=== PATIENT | female | born 1965 | race Hispanic/Latino ===

== ENCOUNTER 2021-01-01 16:19 | Emergency (ER) | payer OTHER ==
[~2021-01-01] VITALS: Ht 154.9 cm; Wt 90.7 kg
[2021-01-01] MEDS ORDERED: ACETAMINOPHEN 500 MG TABLET ONE (17:29)
[2021-01-01] MEDS ORDERED: ACETAMINOPHEN 500 MG TABLET PO ONE (17:30)
[2021-01-01 17:34] VITALS: BP 144/79
[2021-01-01] MEDS ORDERED: CYCL10 PO (17:40)
[2021-01-01] MEDS ORDERED: METH4TAB PO (17:40)
[2021-01-01] MEDS ORDERED: IBUP-2070 PO (17:40)
== END 2021-01-01 17:49 | disposition home or self-care (01) ==
LOC: EDH 16:19
DX: M25.521 Pain in right elbow (principal); Z79.1 Long term (current) use of non-steroidal anti-inflammatories (NSAID); Z79.52 Long term (current) use of systemic steroids; W18.39XA Other fall on same level, initial encounter; Y93.89 Activity, other specified; Y92.89 Other specified places as the place of occurrence of the external cause; Y99.8 Other external cause status
CPT/HCPCS: 73080

== ENCOUNTER 2024-06-12 15:13 | Emergency (ER) | payer BC, OTHER ==
[~2024-06-12] VITALS: Ht 160 cm; Wt 90.7 kg
[~2024-06-12 15:13] MED LIST: CYCL10TA16 PO; IBUP-2070 PO; METH4TAB PO
[2024-06-12] MEDS: Solu-medROL 40MG VIAL IVP ONE (16:06)
[2024-06-12] MEDS: ketOROlac 15MG/ML VIAL (15MG/ML) IV ONE (16:06)
[2024-06-12] MEDS: LACTATED RINGERS 1000ML 1,000 ML IV ONE (16:06)
[2024-06-12 16:34] LABS: BASOPHILS # (AUTO) 0.03 K/uL (0.00-0.20); BASOPHILS % (AUTO) 0.2 % (0.0-5.0); EOSINOPHILS # (AUTO) 0.02 K/uL (0.00-0.70); EOSINOPHILS % (AUTO) 0.2 % (0.0-8.0); HEMATOCRIT 40.5 % (36-48); IMMATURE GRANULOCYTE ABSOLUTE 0.15 K/uL (0-1); LYMPHOCYTES # (AUTO) 2.3 K/uL (1.0-4.8); LYMPHOCYTES % (AUTO) 17.6 % (21.0-51.0); MEAN CORPUSCULAR HEMOGLOBIN 29.3 pg (27.0-33.0); MEAN CORPUSCULAR HGB CONC 32.1 g/dL (32.0-36.0); MEAN CORPUSCULAR VOLUME 91.2 fL (79-99); MONOCYTES # (AUTO) 1.8 K/uL (0.1-1.0); MONOCYTES % (AUTO) 13.4 % (3.0-13.0); NEUTROPHILS % (AUTO) 67.5 % (40.0-77.0); PLATELET COUNT (AUTO) 272 K/uL (130-400); RED BLOOD CELL COUNT(AUTO) 4.44 MIL/uL (4.00-5.50); RED CELL DISTRIBUTION WIDTH 12.7 % (11.0-15.5); WHITE BLOOD COUNT (AUTO) 13.3 K/uL (4.8-10.8)
[2024-06-12 16:49] LABS: CREATININE 0.8 mg/dL (0.5-1.0); POTASSIUM 3.4 mmol/L (3.5-5.1)
--- NOTE | 2024-06-12 17:07 | HMCIMG ---
CHEST 1VW HISTORY: Cough COMPARISON: 01/04/2011 FINDINGS: A frontal projection of the chest was obtained. Prominent interstitial markings are seen with possible superimposed infiltrates. The heart is normal in size. Degenerative changes are seen. No evidence of aortic calcification is seen. IMPRESSION: 1. Prominent interstitial markings are seen with possible superimposed infiltrates.
[2024-06-12] MEDS ORDERED: ALBUHFA IH (17:27)
[2024-06-12] MEDS ORDERED: PRED20TA3 PO (17:27)
--- NOTE | 2024-06-12 17:33 | ERN ---
General Chief Complaint: Shortness of Breath Stated Complaint: LOW OXYGEN Time Seen by MD: 15:14 History of Present Illness Initial Comments 58-year-old female presents for cough and episode of possible hypoxia. Patient reports that she was had bronchitis for a couple of weeks. She has been having cough. No fevers. Today she had a coughing attack and felt like she could not breathe. She went to the nurse's office at her work and was told that she was hypoxic. On arrival here she was not hypoxic. She has a dry hacking cough. No fevers. Nontoxic in appearance. No respiratory distress. Allergies: Coded Allergies: No Known Drug Allergies (Unverified Allergy, Unknown, 01/01/21) Home Meds Active Scripts Methylprednisolone (Medrol) 4 Mg Tablet, 4 MG PO AD for 6 Days, #1 TAB 0 Refills MEDROL DOSE PACK. 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 HEAD/FACE: No signs of trauma. EENT: No eye pain, no blurred vision, no tearing, no double vision, no ear pain, no ear discharge, no nose pain, no nasal congestion, no throat pain, no throat swelling, no mouth pain. RESPIRATORY: Cough. CARDIOVASCULAR: No chest pain, no edema, no palpitations, no syncope. GASTROINTESTINAL/ABDOMINAL: No abdominal pain, no constipation, no diarrhea, no nausea, no vomiting. GENITOURINARY: No abnormal discharge, no dysuria, no frequent urination, no hematuria. No complaints of pain in the genitals. MUSCULOSKELETAL: No back pain, no gout, no joint pain, no joint swelling, no muscle pain, no muscle stiffness, no neck pain. INTEGUMENTARY: No change in color, no change in hair/nails, no dryness, no lesion, no lumps, no rash. NEUROLOGICAL/PSYCH: No anxiety, not depressed, no emotional problem, no headache, no numbness, no pre-existing deficit, no history of seizures, no tremors, no weakness. HEMATOLOGIC/LYMPHATIC: Not anemic, no history of blood clots, no apparent bleeding, no bruising, glands not swollen. All Systems Negative, Except as Noted. Physical Exam Physical Exam Dictation VITAL SIGNS: Reviewed. GENERAL APPEARANCE: Alert, oriented x3, no acute distress, obese. HEAD AND FACE: Non-traumatic. EYES: PERRL, pink conjunctivas, eyelid no trauma, anterior chamber clear. EARS: Pinnas intact and no signs of trauma or erythema. Ear canals clear and no discharge. TMs no erythema. NOSE: No discharge, no bleeding. OROPHARYNX: Mouth normal, teeth no caries, tongue pink. Pharynx clear, no erythema. Tonsils no exudates, no abscesses noted. Mucous membrane moist. NECK: Supple, non-tender, no thyromegaly, no masses, no JVD, no bruits. BREAST: Deferred. CHEST: No tenderness, no crepitus, no paradoxical movement, no retractions. LUNGS: Clear, well-ventilated, symmetric, no rales, no wheezing, no rhonchi, no stridor, good breath sounds bilaterally. HEART: Regular rate, regular rhythm, no murmur, no gallops. VASCULAR: No peripheral edema. ABDOMEN: Soft, positive bowel sounds, nondistended, no guarding, nontender, no rebound, no masses no hepatomegaly, no splenomegaly, no Novak's sign, no hernias. RECTAL: Deferred. GENITAL: Deferred. NEUROLOGICAL: Normal speech, gross motor function intact, gross sensory function intact. MUSCULOSKELETAL: Neck nontender, full range of motion, back nontender, full range of motion. EXTREMITIES: Nontender, full range of motion. SKIN: Color pink, dry, no turgor, no rash, no lacerations, no abrasions, no contusions. LYMPHATICS: Deferred. Results Laboratory and Microbiology Lab and Micro Result Laboratory Tests Test 06/12/24 16:23 White Blood Count 13.3 K/uL (4.8-10.8) H Red Blood Count 4.44 MIL/uL (4.00-5.50) Hemoglobin 13.0 g/dL (12.0-16.0) Hematocrit 40.5 % (36-48) Mean Corpuscular Volume 91.2 fL (79-99) Mean Corpuscular Hemoglobin 29.3 pg (27.0-33.0) Mean Corpuscular Hemoglobin Concent 32.1 g/dL (32.0-36.0) Red Cell Distribution Width 12.7 % (11.0-15.5) Platelet Count 272 K/uL (130-400) Mean Platelet Volume 11.4 fL (7.5-10.5) H Immature Granulocyte % (Auto) 1.1 % (0-1) H Neutrophils (%) (Auto) 67.5 % (40.0-77.0) Lymphocytes (%) (Auto) 17.6 % (21.0-51.0) L Monocytes (%) (Auto) 13.4 % (3.0-13.0) H Eosinophils (%) (Auto) 0.2 % (0.0-8.0) Basophils (%) (Auto) 0.2 % (0.0-5.0) Neutrophils # (Auto) 9.0 K/uL (1.8-7.7) H Lymphocytes # (Auto) 2.3 K/uL (1.0-4.8) Monocytes # (Auto) 1.8 K/uL (0.1-1.0) H Eosinophils # (Auto) 0.02 K/uL (0.00-0.70) Basophils # (Auto) 0.03 K/uL (0.00-0.20) Absolute Immature Granulocyte (auto 0.15 K/uL (0-1) Nucleated Red Blood Cells 0.0 % (0.0-0.19) Sodium Level 145 mmol/L (136-145) Potassium Level 3.4 mmol/L (3.5-5.1) L Chloride Level 105 mmol/L (101-111) Carbon Dioxide Level 32 mmol/L (21-32) Blood Urea Nitrogen 18 mg/dL (7-18) Creatinine 0.8 mg/dL (0.5-1.0) Glomerular Filtration Rate Calc 85 mL/min (>90) Random Glucose 117 mg/dL (70-105) H Total Calcium 9.0 mg/dL (8.5-10.1) Total Creatine Kinase 193 U/L (21-232) Troponin I High Sensitivity 10.1 ng/L (4-50) C-Reactive Protein, Quantitative 10.40 mg/L (0.5-3.0) H MDM CC: Cough, possible episode of hypoxia Comorbidities: Hypertension high cholesterol obesity Limitations by social determinants of health: None Historian: Patient Differential diagnosis: bronchitis, wheezing, PE, ACS, other. Vital signs: Stable. Remained stable here in the ER. Normal oxygen saturation. Clinical exam is unremarkable. No signs of heart failure. Clear lungs. No wheezing. EKG: Sinus rhythm, rate 70, normal axis, good R-wave progression, intervals stable. No STEMI. Independently interpreted by me. CXR ( independently interpreted by me): No cardiomegaly, pleural effusions, focal infiltrates. Labs (independently ordered and interpreted by me ): No leukocytosis 13. She has been here bands. . Chemistry panel is unremarkable. Troponin is normal. BNP is normal. Patient's symptoms are most consistent with a viral upper respiratory infection, likely bronchitis. No signs of PE ACS or other life threat. Treatment in the ED: IV Toradol, IV Solu-Medrol. IV fluid. Plan: We will DC with a albuterol inhaler to use as needed for cough congestion and wheezing. We will also give a short course of prednisone use as needed. Patient agrees with the plan We will DC to PCP follow up. ED Course Orders Procedure Category Date Status Time Cardiac Panel LAB 06/12/24 Complete 15:48 Cbc With Differential LAB 06/12/24 Complete 15:48 Basic Metabolic Panel LAB 06/12/24 Complete 15:48 Chest 1vw RAD 06/12/24 Resulted 15:48 12 Lead Ekg Tracing- EKG 06/12/24 Logged Technical 15:48 Crp Quantitative LAB 06/12/24 Complete 15:48 Methylprednisolone PHA 06/12/24 Complete Succ 40mg (Solu-Medro 16:00 Lactated Ringers PHA 06/12/24 Complete 1000ml (Lactated 16:00 Ketorolac PHA 06/12/24 Complete Tromethamine 15mg/Ml 16:00 Procalcitonin LAB 06/12/24 In Process 15:50 Current Medications Medications (Trade) Dose Ordered Sig/Sreedhar Route PRN Reason Start Time Stop Time Status Last Admin Dose Admin Ketorolac Tromethamine (toRADol) 15 mg ONCE ONCE IV 06/12/24 16:00 06/12/24 16:01 DC 06/12/24 16:06 Lactated Ringer's 1,000 ml @ 0 mls/hr ONCE ONCE IV 06/12/24 16:00 06/12/24 16:01 DC 06/12/24 16:06 Methylprednisolone Sodium Succinate (Solu-medROL 40MG) 40 mg ONCE ONCE IVP 06/12/24 16:00 06/12/24 16:01 DC 06/12/24 16:06 Vital Signs Date Time Temp Pulse Resp B/P (MAP) Pulse Ox O2 Delivery O2 Flow Rate FiO2 06/12/24 15:58 76 18 124/79 96 Room Air* 0 21 06/12/24 15:45 97.9 88 20 136/85 97 Room Air 0 DX & DISP Disposition: Discharge Departure Impression: Primary Impression: Viral bronchitis Additional Impression: Reactive airway disease Condition: Stable Scripts Albuterol Sulfate (Ventolin Hfa/Proventil Hfa/Proair Hfa) 90 Mcg Puff 2 PUFF IH Q4HPRN PRN for wheezing for 30 Days, #18 GM 0 Refills Prov: TAKN SMITH DO 06/12/24 Prednisone (Prednisone) 20 Mg Tablet 1 TAB PO BID for 5 Days, #10 TAB 0 Refills Prov: TANK SMITH DO 06/12/24 Additional Instructions: Your symptoms are consistent with bronchitis. This is often a viral syndrome that will clear on its own. Your vital signs have been stable here in the ER. Your oxygen level has been normal. Your lung sounds are clear. Your chest x-ray is normal. You EKGs normal. Your blood work (CBC, BMP, troponin, CK, BNP) is unremarkable. I have prescribed prednisone, which is an anti-inflammatory steroid. Take as prescribed. I have also prescribed an albuterol inhaler. You can take two puffs every 4-6 hours as needed for coughing or difficulty breathing. You can take [id number] cough medications as needed as well. Please follow up with the primary doctor if you have any concerns. Referrals: SHANEKA PROCTOR DO (PCP) TANK SMITH DO Jun 12, 2024 17:33
[2024-06-12 18:04] VITALS: BP 120/74; PULSE 76; RESP 18; TEMP 97.9; O2SAT 99
--- NOTE | 2024-06-13 08:11 | EKG ---
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
== END 2024-06-12 18:05 | disposition home or self-care (01) ==
LOC: EDH 15:13
DX: J20.8 Acute bronchitis due to other specified organisms (principal); B97.89 Other viral agents as the cause of diseases classified elsewhere; J45.909 Unspecified asthma, uncomplicated; E66.9 Obesity, unspecified; E78.00 Pure hypercholesterolemia, unspecified; I10 Essential (primary) hypertension; Z90.710 Acquired absence of both cervix and uterus
CPT/HCPCS: 99284; 96374; 71045; 96375; 82550; 84484; 80048; 85025; 86140; 36415; 93005; 84145; J1885; J2919; J7120